=== PATIENT | female | born 1955 | race African-American/Black ===

== ENCOUNTER 2017-04-13 13:00 | Outpatient (RCR) | payer BC ==
[~2017-04-13 13:00] MED LIST: AMITIZA24 MCG ORAL; AMITIZA8 MCG ORAL; COSOPT1 DRO2 BOTH EYES; L-THYROXINE ORAL; LEVOTHYROXINE125 MCG ORAL; PRAVASTATIN SOD40 M1 ORAL; TENORMIN25 MG ORAL; VITAMIN D250000 UNI1 ORAL; VITAMIN D400 INTLU ORAL
== END 2017-04-24 | disposition home or self-care (01) ==
LOC: PTY 13:00
DX: M54.40 Lumbago with sciatica, unspecified side (principal); M41.84 Other forms of scoliosis, thoracic region; Z96.652 Presence of left artificial knee joint; Z85.71 Personal history of Hodgkin lymphoma

== ENCOUNTER 2017-05-17 13:45 | Outpatient (RCR) | payer BC | END 2017-05-25 | disposition home or self-care (01) | LOC: PTY 13:45 | DX: M54.40 Lumbago with sciatica, unspecified side (principal); M41.84 Other forms of scoliosis, thoracic region; Z96.652 Presence of left artificial knee joint; Z85.71 Personal history of Hodgkin lymphoma ==

== ENCOUNTER 2017-06-20 08:15 | Outpatient (RCR) | payer BC | END 2017-06-24 | disposition home or self-care (01) | LOC: PTY 08:15 | DX: M54.40 Lumbago with sciatica, unspecified side (principal); M41.84 Other forms of scoliosis, thoracic region; Z96.652 Presence of left artificial knee joint; Z85.71 Personal history of Hodgkin lymphoma | CPT/HCPCS: 97110; 97140; G0283 ==

== ENCOUNTER 2017-07-17 13:00 | Outpatient (RCR) | payer BC | END 2017-07-25 | disposition home or self-care (01) | LOC: PTY 13:00 | DX: M54.40 Lumbago with sciatica, unspecified side (principal); M41.84 Other forms of scoliosis, thoracic region; Z96.652 Presence of left artificial knee joint; Z85.71 Personal history of Hodgkin lymphoma | CPT/HCPCS: 97110; 97140; G0283 ==

== ENCOUNTER 2017-07-28 13:05 | Outpatient (RCR) | payer BC | END 2017-08-24 | disposition home or self-care (01) | LOC: PTY 13:05 | DX: M54.40 Lumbago with sciatica, unspecified side (principal); M41.84 Other forms of scoliosis, thoracic region; Z85.71 Personal history of Hodgkin lymphoma | CPT/HCPCS: 97110; 97140; G0283 ==

== ENCOUNTER 2017-09-21 14:30 | Outpatient (RCR) | payer BC | END 2017-09-24 | disposition home or self-care (01) | LOC: PTY 14:30 | DX: M54.40 Lumbago with sciatica, unspecified side (principal); M41.84 Other forms of scoliosis, thoracic region | CPT/HCPCS: 97110; 97140; G0283 ==

== ENCOUNTER 2017-12-13 08:00 | Outpatient (RCR) | payer BC | END 2017-12-23 | disposition home or self-care (01) | LOC: PTY 08:00 | DX: S93.149A Subluxation of metatarsophalangeal joint of unspecified toe(s), initial encounter (principal); M20.21 Hallux rigidus, right foot; X58.XXXA Exposure to other specified factors, initial encounter; Y92.9 Unspecified place or not applicable ==

== ENCOUNTER 2017-12-26 13:00 | Outpatient (RCR) | payer BC | END 2018-01-22 | disposition home or self-care (01) | LOC: PTY 13:00 | DX: M20.21 Hallux rigidus, right foot (principal); S93.149D Subluxation of metatarsophalangeal joint of unspecified toe(s), subsequent encounter ==

== ENCOUNTER 2018-01-31 13:27 | Outpatient (RCR) | payer BC | END 2018-02-22 | disposition home or self-care (01) | LOC: PTY 13:27 | DX: M20.21 Hallux rigidus, right foot (principal) ==